=== PATIENT | female | born 1980 ===

== ENCOUNTER 2016-08-15 20:37 | Emergency (ER) | payer MEDICAID ==
[~2016-08-15] VITALS: Ht 165.1 cm; Wt 85.9 kg
[~2016-08-15 20:37] MED LIST: CEPH-512 PO; CITA20TA11 PO; FOLI1TAB18 PO; GABA-504 PO; LORA-303 PO; MULTIVITAMIN PO; NAPR500T PO; Thiamine PO; [UNRECOGNIZED DRUG - OTHER] PO
[2016-08-15 20:58] VITALS: BP 136/82; PULSE 90; RESP 12; O2SAT 99
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
[2016-08-15 23:12] VITALS: BP 136/82; PULSE 90; RESP 12; O2SAT 99
--- NOTE | 2016-08-16 08:09 | DRSVH ---
PROCEDURE: CT FACE WITHOUT CONTRAST ([id number]) INDICATIONS: left mandible pain TECHNIQUE: Noncontrast 1.5 mm thick axial images acquired from the mandible through the frontal sinuses, with co rylie and sagittal reformatting. For radiation dose reduction, the following was used: automated ex posure control. COMPARISON: None. FINDINGS: Image quality: Excellent. Bones and teeth: Orbital obando are intact. Sinus obando show no fracture or deformity. Nasal bones and septum are intact. Visualized portions of the mandible demonstrate no fractures or subluxation. Zygomatic arches are intact. Pterygoid plates are intact. Visualized portions of the skull base an d auditory canals are intact. Sinuses: There is a small air-fluid level in the left maxillary sinus. Mastoid air cells are aerated . Soft tissues: There is a complex fluid and air collection with pockets of air adjacent to left maria dolores ble measuring 2.5 x 2.1 cm suspicious for an abscess. No enlarged lymph nodes. No soft tissue lacer ations or debris. Vascular: Visualized vascular structures appear normal in the absence of contrast. Bony vascular fo ramina and canals are intact. IMPRESSION: 1. A 2.5 x 2.1 cm complex fluid collection with pockets of air adjacent to the left mandible, suspici ous for an abscess. 2. A small air-fluid level in the left maxilla sinus. Dictated by: Gloria Azul M.D. on 08/16/2016 at 8:03 Transcribed by: ERIC on 08/16/2016 at 8:08 Approved by: Gloria Azul M.D. on 08/16/2016 at 16:01
== END 2016-08-15 23:16 | disposition home or self-care (01) ==
LOC: EDBD 20:37 → SED 20:37
DX: R68.84 Jaw pain (principal); Y04.8XXA Assault by other bodily force, initial encounter; Y92.9 Unspecified place or not applicable; Y93.89 Activity, other specified; Y99.8 Other external cause status; E11.9 Type 2 diabetes mellitus without complications; I10 Essential (primary) hypertension; F10.20 Alcohol dependence, uncomplicated; K74.3 Primary biliary cirrhosis; E11.40 Type 2 diabetes mellitus with diabetic neuropathy, unspecified; F17.200 Nicotine dependence, unspecified, uncomplicated; Z98.818 Other dental procedure status; Z86.19 Personal history of other infectious and parasitic diseases; Z87.19 Personal history of other diseases of the digestive system; Z59.0 Homelessness

== ENCOUNTER 2016-08-16 18:11 | Emergency (ER) | payer MEDICAID ==
[~2016-08-16] VITALS: Ht 165.1 cm; Wt 75.0 kg
[2016-08-16 18:14] VITALS: BP 126/75; PULSE 71; RESP 20; O2SAT 97
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
--- NOTE | 2016-08-16 20:50 | DRSVH ---
PROCEDURE: X-RAY LEFT RIBS, TWO VIEWS ([id number]) INDICATIONS: pain TECHNIQUE: 2 views of the left ribs were acquired. COMPARISON: [facility], CR, XR RIBS INC PA CXR MIN 3VW LT, 04/17/2015, 3:10. FINDINGS: Surgical changes and devices: None. Bones and chest wall: No displaced or fractures identified. No suspicious bony lesions. Lungs and pleura: The visualized lung appears clear. No pleural effusions or pneumothorax are visib le. IMPRESSION: 1. No displaced rib fractures identified. Dictated by: Remigio Kim M.D. on 08/16/2016 at 20:47 Approved by: Remigio Kim M.D. on 08/16/2016 at 20:48
[2016-08-16 21:06] VITALS: BP 118/74; PULSE 74; RESP 20; O2SAT 96
== END 2016-08-16 21:07 | disposition home or self-care (01) ==
LOC: SED 18:11
DX: S20.212A Contusion of left front wall of thorax, initial encounter (principal); K04.7 Periapical abscess without sinus; S80.11XA Contusion of right lower leg, initial encounter; W19.XXXA Unspecified fall, initial encounter; Y93.89 Activity, other specified; Y92.9 Unspecified place or not applicable; Y99.8 Other external cause status; F17.200 Nicotine dependence, unspecified, uncomplicated
CPT/HCPCS: 71100; 96372; 99284; J1885

== ENCOUNTER 2016-10-22 15:54 | Emergency (ER) | payer MEDICAID ==
[~2016-10-22] VITALS: Ht 165.1 cm; Wt 62.0 kg
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
[2016-10-22 16:15] VITALS: BP 141/85; PULSE 90; RESP 22; O2SAT 97
[2016-10-22 16:41] LABS: BASOPHILS % (AUTO) 1.2 % (0-3); EOSINOPHILS % (AUTO) 0.9 % (0-5); MONOCYTES % (AUTO) 8.9 % (4-12); Mean Corpuscular Hemoglobin 34.4 pg (27.0-35.0); Mean Corpuscular Volume 99.3 fL (81-100); NEUTROPHILS % (AUTO) 66.4 % (40-74); Platelet Count 289 bil/L (150-400)
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
[2016-10-22 20:33] VITALS: BP 122/75; PULSE 95; RESP 20; O2SAT 96
[2016-10-23 08:01] VITALS: BP 123/75; PULSE 63; RESP 20
[2016-10-23] MEDS ORDERED: LORazepam 2 mg Tablet PO ONE (08:10)
[2016-10-23] MEDS ORDERED: LORA-303 PO (11:59)
== END 2016-10-23 12:25 | disposition home or self-care (01) ==
LOC: SED 15:54
DX: R45.851 Suicidal ideations (principal); F10.10 Alcohol abuse, uncomplicated; F17.200 Nicotine dependence, unspecified, uncomplicated; Z59.0 Homelessness